=== PATIENT | female | born 2000 | race Caucasian/White ===

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

== ENCOUNTER → 2021-03-13 11:47 | Outpatient (CLI) | payer OTHER, MEDICAID, SELFPAY ==
[2021-03-13 12:45] LABS: Add Manual Diff / Slide Review NO; Basophils Absolute Auto 0 /uL (0-100); Basophils Percent Auto 0.5 % (0-2); Eosinophils Absolute Auto 100 /uL (0-450); Eosinophils Percent Auto 2.4 % (2-4); Hematocrit 38.7 % (36-46); Hemoglobin 13.5 g/dL (12.0-16.0); Lymphocytes Absolute Auto 1800 /uL (1100-4500); Lymphocytes Percent Auto 54.6 % (25-40); Mean Corpuscular HGB Conc 34.8 % (30-36); Mean Corpuscular Volume 89.2 fL (80-100); Monocytes Absolute Auto 200 /uL (0-900); Monocytes Percent Auto 7.6 % (3-14); Neutrophils Absolute Auto 1100 /uL (1500-7000); Neutrophils Percent Auto 34.9 % (50-75); Platelet Count 182 X10^3/uL (150-400); Red Blood Cell Count 4.34 X10^6/uL (4.0-5.2); Red Cell Distribution Width 13.6 % (11.6-14.8); White Blood Cell Count 3.2 X10^3/uL (4.5-11.0)
[2021-03-13 13:10] LABS: Alanine Aminotransferase 15 IU/L (<35); Albumin Globulin Ratio 1.1 (1.0-2.8); Alkaline Phosphatase 58 U/L (38-126); Aspartate Aminotransferase 25 IU/L (14-36); BUN Creatinine Ratio 20.2 (6-22); Bilirubin Total 0.8 mg/dL (0.2-1.3); Blood Urea Nitrogen 19 mg/dL (7-17); Calcium 9.7 mg/dL (8.4-10.2); Carbon Dioxide 27 mmol/L (22-32); Chloride 104 mmol/L (98-107); Estimated Glomerular Filt Rate > 60.0 mL/min (>60); Globulin 4.4 g/dL (1.7-4.1); Glucose 79 mg/dL (70-100); HEMOLYSIS < 15 (0-50); Potassium 3.9 mmol/L (3.4-5.1); Sodium 140 mmol/L (137-145); Total Protein 9.4 g/dL (6.3-8.2)
[2021-03-13 13:19] LABS: Vitamin D 25 Hydroxy (D3) 26.6 ng/mL (30.0-100.0)
[2021-03-13 13:48] LABS: Free T3, Triiodothyronine Free 3.18 pg/mL (2.77-5.27); Free T4, Direct Thyroxine 1.07 ng/dL (0.78-2.19)
[2021-03-13 15:10] LABS: Vitamin B12 468 pg/mL (239-931)
== END ==
PROVIDERS: PCP Nurse Practitioner Family; Referring Provider Nurse Practitioner Family; Visit Provider Family Medicine
DX: I49.8 Other specified cardiac arrhythmias (principal); R63.0 Anorexia; N92.6 Irregular menstruation, unspecified; F41.9 Anxiety disorder, unspecified; F32.9 Major depressive disorder, single episode, unspecified
CPT/HCPCS: 36415; 80053; 82306; 82607; 84439; 84443; 84481; 85025

== ENCOUNTER → 2024-03-18 07:27 | Outpatient (CLI) | payer OTHER, SELFPAY | PROVIDERS: PCP Family Medicine; Visit Provider Nurse Practitioner Family | DX: R30.0 Dysuria (principal) | CPT/HCPCS: 87077; 87086; 87147; 87186 ==

== ENCOUNTER → 2024-05-23 08:08 | Outpatient (CLI) | payer OTHER, SELFPAY ==
--- NOTE | 2024-05-23 08:09 | DI.ECHO.S_ITS ---
[facility] : : [id number] : [place] : : [id number] : : Phone: [phone] Echocardiogram Report + + :Name: O'SAGAR BOURGEOIS Study Date: 05/23/2024 Height: 67 in : :[facility] ReadingLocation: Weight: 115 lb : : Gender: Female BSA: 1.6 m2 : :: 2000 Age: 23 yrs BP: 124/69 mmHg: :Reason For Study: POSTURAL DIZZINESS, PRESYNCOPE : :Ordering Physician: JOHN : :REINA Performed By: Kobi Awad : :Referring: REINA LOPEZ : + + Interpretation Summary Normal echocardiogram. No previous echo images available for comparison. Procedure: A two-dimensional transthoracic echocardiogram with color flow and Doppler was performed. The study quality was technically good. There is no prior echocardiogram noted for this patient. The patient was in normal sinus rhythm during the exam. Left Ventricle: The left ventricle is normal in size. There is normal left ventricular wall thickness. There is no ventricular septal defect visualized. The ejection fraction is estimated to be 55-60%. There are no focal wall motion abnormalities. Diastolic parameters suggest probable normal left ventricular diastolic function and normal filling pressures. Right Ventricle: The right ventricle is normal in size and function. Atria: The left atrial size is normal. Right atrial size is normal. There is no Doppler evidence for an interatrial shunt. Mitral Valve: The mitral valve leaflets appear normal. There is no evidence of stenosis, fluttering, or prolapse. There is no mitral regurgitation noted. Aortic Valve: The aortic valve is trileaflet. The aortic valve opens well. No aortic regurgitation is present. Tricuspid Valve: The tricuspid valve leaflets are thin and pliable. There is a trace or physiologic amount of tricuspid regurgitation. Pulmonic Valve: The pulmonic valve is not well seen, but is grossly normal. There is no pulmonic valvular regurgitation. Great Vessels: The aortic root is normal size. The dimensions of the ascending aorta are normal. The pulmonary artery is normal size. The IVC is of normal diameter and collapses greater than 50% with a sniff. This suggests a low right atrial pressure of 3 mm Hg. Pericardium/ Pleura There is a trivial pericardial effusion noted. MMode/2D Measurements & Calculations LVIDd: 4.8 cm LVOT diam: 2.1 cm LVIDs: 3.3 cm Ao root diam: 2.8 cm FS: 29.8 % asc Aorta Diam: 2.7 cm EPSS: 0.73 cm Ao Arch Diam (Prox Trans): 1.6 cm IVSd: 0.79 cm LVPWd: 0.72 cm LV estrada. diameter/BSA (cm/m^2): 3.0 LV sys. diameter/BSA (cm/m^2): 2.1 LA A2 area: 15.2 cm2 RA long axis: 3.9 cm LA A4 area: 14.9 cm2 RA area: 9.8 cm2 LA length (vol): 5.0 cm RA vol: 20.9 ml LA vol: 38.1 ml RA : 13.1 ml/m2 LA vol index: 23.9 ml/m2 IVC diam: 1.8 cm RVD1 (basal): 3.0 cm RVD2 (mid): 2.7 cm TAPSE: 2.7 cm Doppler Measurements & Calculations Ao V2 max: 129.0 cm/sec LVOT Max Cole: 107.3 cm/sec Ao V2 mean: 91.9 cm/sec LV V1 max P.6 mmHg Ao max P.7 mmHg LV V1 VTI: 23.5 cm Ao mean P.8 mmHg JJ(I,D): 2.8 cm2 Ao V2 VTI: 28.7 cm JJ(V,D): 2.9 cm2 sev ratio: 0.82 JJ indexed to BSA (cm^2/m^2): 1.8 MV E max cole: 93.5 cm/sec TR max cole: 252.0 cm/sec MV A max cole: 27.1 cm/sec TR max P.4 mmHg MV E/A: 3.5 PA V2 max: 77.7 cm/sec Med Peak E' Cole: 11.9 cm/sec PA V2 mean: 56.5 cm/sec E/E' med: 7.9 PA mean P.4 mmHg Lat Peak E' Cole: 13.7 cm/sec PA pr(Accel): 10.5 mmHg E/E' lat: 6.8 E/e' average: 7.3 MV dec time: 0.16 sec SV(LVOT): 81.5 ml Reading Physician:12:12 PM
== END ==
PROVIDERS: PCP Family Medicine; Referring Provider Internal Medicine Cardiovascular Disease; Visit Provider Internal Medicine Cardiovascular Disease
DX: R42 Dizziness and giddiness (principal); R55 Syncope and collapse
CPT/HCPCS: 93306

== ENCOUNTER → 2024-07-10 16:14 | Outpatient (CLI) | payer OTHER, SELFPAY ==
[2024-07-10 17:52] LABS: Add Manual Diff / Slide Review NO; Basophils Absolute Auto 0 /uL (0-100); Basophils Percent Auto 0.4 % (0-2); Eosinophils Absolute Auto 0 /uL (0-450); Eosinophils Percent Auto 0.6 % (2-4); Hematocrit 39.6 % (36-46); Hemoglobin 13.5 g/dL (12.0-16.0); Lymphocytes Absolute Auto 1400 /uL (1100-4500); Lymphocytes Percent Auto 42.7 % (25-40); Mean Corpuscular HGB Conc 34.2 % (30-36); Mean Corpuscular Hemoglobin 31.1 PG (26-34); Monocytes Absolute Auto 300 /uL (0-900); Monocytes Percent Auto 8.3 % (3-14); Neutrophils Absolute Auto 1600 /uL (1500-7000); Platelet Count 178 X10^3/uL (150-400); Red Blood Cell Count 4.35 X10^6/uL (4.0-5.2); Red Cell Distribution Width 12.9 % (11.6-14.8); White Blood Cell Count 3.4 X10^3/uL (4.5-11.0)
[2024-07-10 18:10] LABS: BUN Creatinine Ratio 15.1 (6-22); Blood Urea Nitrogen 13 mg/dL (7-17); Calcium 10.1 mg/dL (8.4-10.2); Carbon Dioxide 27 mmol/L (22-32); Chloride 99 mmol/L (98-107); Estimated Glomerular Filt Rate > 60 mL/min (>60); Glucose 91 mg/dL (70-99); HEMOLYSIS < 15 (0-50); Potassium 4.4 mmol/L (3.4-5.1); Sodium 138 mmol/L (137-145)
== END ==
PROVIDERS: PCP Family Medicine; Referring Provider Family Medicine; Visit Provider Family Medicine
DX: R55 Syncope and collapse (principal)
CPT/HCPCS: 36415; 80048; 85025

== ENCOUNTER → 2024-07-26 14:49 | Outpatient (CLI) | payer OTHER, SELFPAY ==
[2024-07-26 15:29] LABS: Add Manual Diff / Slide Review NO; Basophils Absolute Auto 0 /uL (0-100); Basophils Percent Auto 0.4 % (0-2); Eosinophils Absolute Auto 0 /uL (0-450); Eosinophils Percent Auto 1.2 % (2-4); Hematocrit 39.2 % (36-46); Hemoglobin 13.5 g/dL (12.0-16.0); Lymphocytes Absolute Auto 1600 /uL (1100-4500); Lymphocytes Percent Auto 46.8 % (25-40); Mean Corpuscular HGB Conc 34.4 % (30-36); Mean Corpuscular Hemoglobin 31.3 PG (26-34); Mean Corpuscular Volume 91.1 fL (80-100); Monocytes Absolute Auto 300 /uL (0-900); Monocytes Percent Auto 9.7 % (3-14); Neutrophils Absolute Auto 1400 /uL (1500-7000); Neutrophils Percent Auto 41.9 % (50-75); Platelet Count 168 X10^3/uL (150-400); Red Blood Cell Count 4.31 X10^6/uL (4.0-5.2); Red Cell Distribution Width 13.1 % (11.6-14.8); White Blood Cell Count 3.4 X10^3/uL (4.5-11.0)
[2024-07-26 15:54] LABS: Alanine Aminotransferase 13 IU/L (<35); Albumin 5.2 g/dL (3.5-5.0); Albumin Globulin Ratio 1.4 (1.0-2.8); Alkaline Phosphatase 58 U/L (38-126); Aspartate Aminotransferase 22 IU/L (14-36); BUN Creatinine Ratio 15.2 (6-22); Bilirubin Total 0.5 mg/dL (0.2-1.3); Blood Urea Nitrogen 12 mg/dL (7-17); Calcium 9.8 mg/dL (8.4-10.2); Carbon Dioxide 27 mmol/L (22-32); Chloride 101 mmol/L (98-107); Estimated Glomerular Filt Rate > 60 mL/min (>60); Globulin 3.7 g/dL (1.7-4.1); Glucose 87 mg/dL (70-99); HEMOLYSIS < 15 (0-50); Potassium 4.5 mmol/L (3.4-5.1); Sodium 139 mmol/L (137-145); Total Protein 8.9 g/dL (6.3-8.2)
[2024-07-26 16:10] LABS: Free T4, Direct Thyroxine 0.93 ng/dL (0.78-2.19)
[2024-07-26 16:24] LABS: Thyroid Stimulating Hormone 2.25 uIU/mL (0.47-4.68)
== END ==
PROVIDERS: PCP Family Medicine; Referring Provider Internal Medicine Cardiovascular Disease; Visit Provider Internal Medicine Cardiovascular Disease
DX: G90.A Postural orthostatic tachycardia syndrome [POTS] (principal)
CPT/HCPCS: 36415; 80053; 84439; 84443; 85025